=== PATIENT | female | born 1955 | race African-American/Black ===

== ENCOUNTER → 2016-11-11 | Outpatient (CLI) | payer OTHER ==
[~2016-11-11] MED LIST: AMLO10TA2 PO; CONTOUR1 XX; ENAL10TA PO; GLUCTES27; LEVEMIR SQ; LEVO75TA3 PO; LEVO88TA2 PO; LIPI40TA PO; METF1000 PO; Z.0.INSULINSYR XX
[2016-11-11 08:36] LABS: AUTOMATED NEUTROPHIL # 3.7 TH/MM3 (1.8-7.7); BASOPHIL # 0.1 TH/MM3 (0-0.2); BASOPHIL % 0.8 % (0.0-2.0); EOSINOPHIL # 0.2 TH/MM3 (0-0.4); EOSINOPHIL % 3.5 % (0.0-4.0); HEMATOCRIT 31.5 % (35.0-46.0); HEMO FLAGS DIFF FINAL; LYMPH % 30.3 % (9.0-44.0); LYMPHOCYTE # 2.1 TH/MM3 (1.0-4.8); MEAN CELL VOLUME 78.7 FL (80.0-100.0); MEAN CORPUSCULAR HEMOGLOBIN 25.7 PG (27.0-34.0); MEAN CORPUSCULAR HGB CONC 32.6 % (32.0-36.0); NEUT % 54.4 % (16.0-70.0); PLATELET COUNT 228 TH/MM3 (150-450); RED CELL DISTRIBUTION WIDTH 14.9 % (11.6-17.2); WHITE BLOOD COUNT 6.9 TH/MM3 (4.0-11.0)
[2016-11-11 09:00] LABS: ALT (GPT) 25 U/L (10-53); ANION GAP 7 MEQ/L (5-15); AST (GOT) 22 U/L (15-37); BICARBONATE 27.4 MEQ/L (21.0-32.0); BLOOD UREA NITROGEN 14 MG/DL (7-18); CHLORIDE 108 MEQ/L (98-107); GLOMERULAR FILTRATION RATE 66 ML/MIN (>89); GLUCOSE,FASTING 229 MG/DL (74-99); SODIUM (NA) 142 MEQ/L (136-145)
[2016-11-11 09:09] LABS: ALKALINE PHOSPHATASE 82 U/L (45-117); HDL CHOLESTEROL 49.6 MG/DL (40.0-60.0); LDL CHOLESTEROL 64 MG/DL (0-99); TOTAL BILIRUBIN ADULT 0.2 MG/DL (0.2-1.0)
[2016-11-11 16:29] LABS: HEMOGLOBIN A1a 1.1 %; HEMOGLOBIN A1b 0.9 %; HEMOGLOBIN Ao 55.8 %; HEMOGLOBIN F 1.3 %; HEMOGLOBIN LA1C 2.1 %; HEMOGLOBIN P3 3.5 %
== END ==
LOC: CLAB 08:17
PROVIDERS: ATTEND Family Medicine
DX: E03.9 Hypothyroidism, unspecified (principal); E11.9 Type 2 diabetes mellitus without complications; I10 Essential (primary) hypertension; I50.9 Heart failure, unspecified; E78.5 Hyperlipidemia, unspecified; Z91.19 Patient's noncompliance with other medical treatment and regimen
CPT/HCPCS: 36415; 80053; 80061; 83036; 84443; 85025

== ENCOUNTER → 2016-11-16 | Outpatient (CLI) | payer OTHER ==
[2016-11-16 12:41] LABS: TRANSFERRIN IRON PROFILE 211 MG/DL (200-360)
== END ==
LOC: CLAB 11:36
PROVIDERS: ATTEND Family Medicine
DX: D64.9 Anemia, unspecified (principal); E11.9 Type 2 diabetes mellitus without complications; E03.9 Hypothyroidism, unspecified
CPT/HCPCS: 36415; 83540; 83550; 84443

== ENCOUNTER → 2016-11-25 | Outpatient (CLI) | payer OTHER ==
[~2016-11-25] MED LIST changes: -CONTOUR1 XX; -Z.0.INSULINSYR XX
[2016-11-25 14:09] LABS: URINE TOTAL PROTEIN TIMED 161.2 MG/DL
== END ==
LOC: CLAB 11:43
PROVIDERS: ATTEND Family Medicine
DX: E11.9 Type 2 diabetes mellitus without complications (principal); D64.9 Anemia, unspecified
CPT/HCPCS: 82272; 84157

== ENCOUNTER → 2017-04-12 | Outpatient (CLI) | payer OTHER ==
[~2017-04-12] MED LIST changes: -LEVO75TA3 PO; +NYST15T TOPICAL
[2017-04-12 18:07] LABS: HEMOGLOBIN A1a 1.1 %; HEMOGLOBIN A1b 0.8 %; HEMOGLOBIN Ao 56.6 %; HEMOGLOBIN F 1.3 %; HEMOGLOBIN LA1C 1.7 %; HEMOGLOBIN P3 3.1 %
== END ==
LOC: CLAB 14:27
PROVIDERS: ATTEND Family Medicine
DX: E03.9 Hypothyroidism, unspecified (principal); E11.9 Type 2 diabetes mellitus without complications
CPT/HCPCS: 36415; 83036; 84443

== ENCOUNTER 2018-08-04 17:30 | Inpatient (IN) ==
[2018-08-04] MEDS ORDERED: Acetaminophen 325 MG Tablet PO ONE (17:52)
[2018-08-04] MEDS ORDERED: Sod Chloride 0.9% Inj 1,000 ML IV.CONT SCH (18:00)
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
[2018-08-04 19:00] LABS: Baso # (Auto) 0.1 th/mm3 (0.0-0.2); Eos # (Auto) 0.1 th/mm3 (0.0-0.4); Eos % (Auto) 2.4 % (0.0-4.0); Hematocrit 33.2 % (35.0-46.0); Hemoglobin 10.7 gm/dL (11.6-15.3); Lymph # (Auto) 1.7 th/mm3 (1.0-4.8); Lymph % (Auto) 28.1 % (9.0-44.0); Mean Corpuscular HGB Conc 32.2 % (32.0-36.0); Mean Corpuscular Volume 80.6 fL (80.0-100.0); Mean Platelet Volume 10.6 fL (7.0-11.0); Mono # (Auto) 0.5 th/mm3 (0.0-0.9); Mono % (Auto) 8.8 % (0.0-8.0); Neut # (Auto) 3.7 th/mm3 (1.8-7.7); Neut % (Auto) 59.7 % (16.0-70.0); Platelet Count 233 th/mm3 (150-450); Red Blood Count 4.12 mil/mm3 (4.00-5.30); Red Cell Distribution Width 14.6 % (11.6-17.2); White Blood Count 6.2 th/mm3 (4.0-11.0)
[2018-08-04 19:14] LABS: Activated Partial Thrombo Time 26.9 sec (23.4-31.7); Prothrombin Time 10.2 sec (9.8-11.6)
[2018-08-04 20:25] LABS: Carbon Dioxide 25.4 meq/L (21.0-32.0); Potassium 4.3 meq/L (3.5-5.1)
[2018-08-04] MEDS ORDERED: Sod Chloride 0.9% Inj 1,000 ML IV.SIG SCH (20:45)
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
[2018-08-04] MEDS ORDERED: amLODIPine 5 MG Tablet PO ONE ×2 (21:52→22:35)
[2018-08-04] MEDS ORDERED: Labetalol HCl Inj 100 MG/20 ML Vial IV.PUSH ONE (21:58)
[2018-08-04] MEDS ORDERED: Bisacodyl 10 MG Supp RECTAL PRN (22:24)
[2018-08-04] MEDS ORDERED: Acetaminophen 325 MG Tablet PO PRN (22:24)
[2018-08-04] MEDS ORDERED: Dextrose 50% in Water 50 ML Vial IV.PUSH PRN (22:35)
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
[2018-08-05] MEDS: Sod Chloride 0.9% Inj 1,000 ML IV.CONT SCH ×2 (03:18→13:23)
[2018-08-05 08:37] LABS: Baso # (Auto) 0.1 th/mm3 (0.0-0.2); Baso % (Auto) 0.8 % (0.0-2.0); Eos # (Auto) 0.1 th/mm3 (0.0-0.4); Eos % (Auto) 1.9 % (0.0-4.0); Hemoglobin 9.9 gm/dL (11.6-15.3); Lymph # (Auto) 1.5 th/mm3 (1.0-4.8); Lymph % (Auto) 22.9 % (9.0-44.0); Mean Corpuscular Hemoglobin 26.6 pg (27.0-34.0); Mean Corpuscular Volume 80.5 fL (80.0-100.0); Mean Platelet Volume 10.5 fL (7.0-11.0); Mono # (Auto) 0.8 th/mm3 (0.0-0.9); Neut # (Auto) 4.1 th/mm3 (1.8-7.7); Neut % (Auto) 62.4 % (16.0-70.0); Platelet Count 204 th/mm3 (150-450); Red Blood Count 3.72 mil/mm3 (4.00-5.30); Red Cell Distribution Width 14.7 % (11.6-17.2); White Blood Count 6.5 th/mm3 (4.0-11.0)
[2018-08-05] MEDS ORDERED: amLODIPine 5 MG Tablet PO SCH (09:00)
[2018-08-05] MEDS: Insulin NovoLOG Aspart Correctional Sugar Inj SQ SCH ×2 (09:08→13:23)
[2018-08-05 09:14] LABS: Albumin 3.1 g/dL (3.4-5.0); Anion Gap 6 meq/L (5-15); Aspartate Aminotransferase 14 U/L (15-37); Blood Urea Nitrogen 24 mg/dL (7-18); Calcium 8.6 mg/dL (8.5-10.1); Carbon Dioxide 25.1 meq/L (21.0-32.0); Chloride 113 meq/L (98-107); Glomerular Filtration Rate 43 mL/min (>89); Glucose,Random 166 mg/dL (74-106); Sodium 144 meq/L (136-145)
[2018-08-05 09:15] LABS: Alanine Aminotransferase 19 U/L (10-53)
[2018-08-05 09:17] LABS: Alkaline Phosphatase 94 U/L (45-117); Total Protein 6.7 g/dL (6.4-8.2)
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
== END 2018-08-05 16:49 | disposition home or self-care (01) ==
LOC: NEDA 17:30 → NEPD 17:30 → OBSVTOIN 22:24 → NEPGCP 08-05 00:07
PROVIDERS: ADMIT Internal Medicine; ATTEND Internal Medicine